=== PATIENT | female | born 1975 | race African-American/Black ===

== ENCOUNTER 2020-09-12 23:29 | Emergency (ER) | payer MEDICAID, OTHER ==
[~2020-09-12] VITALS: Ht 180.3 cm; Wt 59.0 kg
[~2020-09-12 23:29] MED LIST: TRAMADOL
[2020-09-13] MEDS ORDERED: TETRACAINE 0.5% OPHTH DROPS 4ML BOTHEYE ONE (00:30)
[2020-09-13] MEDS ORDERED: FLUORESCEIN SODIUM 1MG/STRIP BOTHEYE ONE (00:30)
[2020-09-13 02:09] VITALS: BP 124/88
== END 2020-09-13 02:09 | disposition home or self-care (01) ==
LOC: ER 23:29
DX: H04.123 Dry eye syndrome of bilateral lacrimal glands (principal); R03.0 Elevated blood-pressure reading, without diagnosis of hypertension; J45.909 Unspecified asthma, uncomplicated
CPT/HCPCS: 99281

== ENCOUNTER 2022-09-05 16:20 | Emergency (ER) | payer MEDICAID, OTHER ==
[~2022-09-05] VITALS: Ht 149.9 cm; Wt 57.0 kg
[2022-09-05 16:43] VITALS: BP 129/86
[2022-09-05] MEDS ORDERED: ACETAMINOPHEN 325MG TABLET PO ONE (18:15)
[2022-09-05] MEDS ORDERED: TETANUS, DIPHTHERIA, PERTUSSIS VAC/PF 0.5ML (>10YR OLD) IM ONE (18:45)
[2022-09-05] MEDS ORDERED: BACITRACIN ZINC OINT UDPKT TOP ONE (19:15)
[2022-09-05] MEDS ORDERED: AMOX1TAB16 MT (19:19)
== END 2022-09-05 19:45 | disposition home or self-care (01) ==
LOC: ER 16:20
DX: S61.451A Open bite of right hand, initial encounter (principal); F12.10 Cannabis abuse, uncomplicated; J45.909 Unspecified asthma, uncomplicated; Z98.890 Other specified postprocedural states; Y04.1XXA Assault by human bite, initial encounter; Y93.89 Activity, other specified; Y92.89 Other specified places as the place of occurrence of the external cause; Y99.8 Other external cause status
CPT/HCPCS: 73090; 73110; 73120; 90471; 90715; 99284